=== PATIENT | male | born 2000 | race Caucasian/White ===

== ENCOUNTER 2022-07-13 16:41 | Emergency (ER) | payer SELFPAY ==
[~2022-07-13] VITALS: Ht 149.9 cm; Wt 68.0 kg
[2022-07-13 17:05] VITALS: BP 113/67
[2022-07-13] MEDS ORDERED: LORTAB 5/3255 MG PO (17:33)
[2022-07-13] MEDS ORDERED: SULFACET SOD10 % OD (17:33)
[2022-07-13] MEDS ORDERED: NAPRELAN500 MG PO (17:33)
[2022-07-13 17:35] VITALS: BP 113/67
== END 2022-07-13 17:45 | disposition home or self-care (01) | DRG 125 ==
LOC: ED 16:41
DX: S05.01XA Injury of conjunctiva and corneal abrasion without foreign body, right eye, initial encounter (principal); X58.XXXA Exposure to other specified factors, initial encounter; Y93.89 Activity, other specified; Y92.89 Other specified places as the place of occurrence of the external cause; Y99.0 Civilian activity done for income or pay